=== PATIENT | female | born 1970 | race Caucasian/White ===

== ENCOUNTER 2018-06-01 09:24 | Emergency (ER) | payer OTHER ==
[~2018-06-01] VITALS: Ht 162.6 cm; Wt 66.7 kg
[2018-06-01] MEDS ORDERED: XARELTO10 MG PO (09:36)
[2018-06-01] MEDS ORDERED: LASIX20 MG PO (09:36)
[2018-06-01] MEDS ORDERED: INDERAL XL80 MG PO (09:36)
[2018-06-01] MEDS ORDERED: ZOFRAN4 MG SL (10:32)
[2018-06-01] MEDS ORDERED: ULTRAM50 MG PO (10:32)
--- NOTE | 2018-06-01 18:37 | EKG ---
[facility] [address] [facility] [place], [place] [address] Signed Normal sinus rhythm Nonspecific ST abnormality Abnormal ECG No previous ECGs available Confirmed by HAYDEE FERRARO MD ([id number]) on 06/01/2018 6:37:38 PM Electronically Signed By: HAYDEE FERRARO MD 06/01/18 1837 PATIENT NAME: MANOLO CALVILLO Electrocardiogram DATE OF : 74 PHYSICIAN: HAYDEE FERRARO MD REPORT #: [id number] REPORT IS CONFIDENTIAL AND NOT TO BE RELEASED WITHOUT AUTHORIZATION
== END 2018-06-01 12:10 | disposition home or self-care (01) ==
LOC: ED 09:24
DX: M79.18 Myalgia, other site (principal); Z79.899 Other long term (current) drug therapy; Z51.81 Encounter for therapeutic drug level monitoring
CPT/HCPCS: 71045; 80053; 81001; 84484; 84703; 85025; 85379; 85610; 93005; 93010; 96374; 99283-25; J2405

== ENCOUNTER 2018-08-18 15:34 | Emergency (ER) | payer OTHER ==
[~2018-08-18] VITALS: Ht 162.6 cm; Wt 66.7 kg
[~2018-08-18 15:34] MED LIST: INDERAL XL80 MG PO; LASIX20 MG PO; ULTRAM50 MG PO; XARELTO10 MG PO; ZOFRAN4 MG SL
--- OUTSIDE RECORDS SUMMARY | 2018-08-18 15:36 | XMS ---
PreManage Notification: MANOLO CALVILLO Security Learning Strategist Events No recent Security Events currently on file [facility] There are no care providers on record at this time. Yanira has no Care Guidelines for this patient. Jayden VISIT COUNT (12 MO.) 2 TATIANA Morillo TOTAL 2 NOTE: Visits indicate total known visits. ED/C VISIT TRACKING (12 MO.) 08/18/2018 15:34 TATIANA Mendez [place] TYPE: Emergency COMPLAINT: - STROKE SYMPTOMS 06/01/2018 09:25 TATIANA Mendez [place] TYPE: Emergency COMPLAINT: - JAW/NECK/L SHOULDER PAIN/NON INJURY DIAGNOSES: - Encounter for therapeutic drug level monitoring - Other computer terminal operator (current) drug therapy - Otalgia, left ear - MYALGIA, OTHER SITE INPATIENT VISIT TRACKING (12 MO.) No inpatient visits to display in this time frame [id number]
[2018-08-18] MEDS ORDERED: LOSARTAN POTASS25 MG PO (15:57)
[2018-08-18] MEDS ORDERED: OMEGA 3 500 SO1 EACH PO (15:58)
[2018-08-18] MEDS ORDERED: ASPIR-LOW81 MG PO (15:58)
[2018-08-18] MEDS ORDERED: NEXIUM40 MG PO (15:58)
[2018-08-18] MEDS ORDERED: ZYRTEC10 M3 PO (15:59)
[2018-08-19] MEDS ORDERED: REGLAN10 MG PO (14:29)
== END 2018-08-18 17:34 | disposition home or self-care (01) ==
LOC: ED 15:34
DX: R51 Headache (principal); R20.2 Paresthesia of skin; I10 Essential (primary) hypertension; Z79.899 Other long term (current) drug therapy; Z79.82 Long term (current) use of aspirin
CPT/HCPCS: 99283

== ENCOUNTER 2018-08-19 08:29 | Emergency (ER) | payer OTHER ==
[~2018-08-19] VITALS: Ht 162.6 cm; Wt 66.7 kg
[~2018-08-19 08:29] MED LIST changes: +ASPIR-LOW81 MG PO; +LOSARTAN POTASS25 MG PO; +NEXIUM40 MG PO; +OMEGA 3 500 SO1 EACH PO; +ZYRTEC10 M3 PO
--- OUTSIDE RECORDS SUMMARY | 2018-08-19 08:32 | XMS ---
PreManage Notification: MANOLO CALVILLO Security Chip Unloader Events No recent Security Events currently on file CRITERIA MET - PDM - [facility] - 2 Visits in 30 Days CARE PROVIDERS There are no care providers on record at this time. Yanira has no Care Guidelines for this patient. Jayden VISIT COUNT (12 MO[address] [facility] [place] H. TOTAL 3 NOTE: Visits indicate total known visits. ED/C VISIT TRACKING (12 MO.) 08/19/2018 08:30 [facility] [place] TYPE: Emergency COMPLAINT: - LEFT SIDED NUMBLESS/TINGLING 08/18/2018 15:34 TATIANA Mendez [place] TYPE: Emergency COMPLAINT: - STROKE SYMPTOMS 06/01/2018 09:25 TATIANA Mendez [place] TYPE: Emergency COMPLAINT: - JAW/NECK/L SHOULDER PAIN/NON INJURY DIAGNOSES: - Encounter for therapeutic drug level monitoring - Other correction (current) drug therapy - Otalgia, left ear - MYALGIA, OTHER SITE INPATIENT VISIT TRACKING (12 MO.) No inpatient visits to display in this time frame [id number]
[2018-08-19] MEDS ORDERED: REGLAN10 MG PO (14:29)
== END 2018-08-19 14:52 | disposition home or self-care (01) ==
LOC: ED 08:29
DX: G43.909 Migraine, unspecified, not intractable, without status migrainosus (principal); R20.2 Paresthesia of skin; I10 Essential (primary) hypertension; Z79.899 Other long term (current) drug therapy; Z79.82 Long term (current) use of aspirin
CPT/HCPCS: 70551; 80053; 85025; 96374; 96375; 99284-25; J1200; J1885; J2405; J2765

== ENCOUNTER 2018-08-21 10:50 | Emergency (ER) | payer OTHER ==
[~2018-08-21] VITALS: Ht 162.6 cm; Wt 66.7 kg
[~2018-08-21 10:50] MED LIST changes: +REGLAN10 MG PO
--- OUTSIDE RECORDS SUMMARY | 2018-08-21 10:54 | XMS ---
PreManage Notification: MANOLO CALVILLO Security Tile Applicator Events No recent Security Events currently on file CRITERIA MET - [facility] - Has Care Guidelines - PDMP - [facility] - 2 Visits in 30 Days CARE PROVIDERS Dayo Lizama [facility] 08/19/2018-Current PHONE: Unknown Yanira has no Care Guidelines for this patient. Care History Medical/Surgical 08/19/2018 [facility] - PATIENT HAS AN APT TO ESTABLISH CARE WITH DR LIZAMA ON 09/22/18. - Patient is currently established with [facility]. If patient is seen in the ED during business hours. Please contact CHWs at [facility]. - Care Recommendation: This patient has had 5 or more Emergency Department visits in the last 12 months.\T\nbsp; Patient requires education on the scope and purpose of the ED as an acute care provider not a Primary Care Provider and should not be utilized for chronic conditions.\T\nbsp; These are guidelines and the provider should exercise clinical judgment when providing care. E.D. VISIT COUNT (12 MO.) 4 TATIANA Morillo TOTAL 4 NOTE: Visits indicate total known visits. ED/UCC VISIT TRACKING (12 MO.) 08/21/2018 10:51 TATIANA Mendez [place] TYPE: Emergency COMPLAINT: - CHEST PAIN/BP PROBLEM 08/19/2018 08:30 T[facility]IANA Mendez [place] TYPE: Emergency COMPLAINT: - LEFT SIDED NUMBNESS/TINGLING 08/18/2018 15:34 TATIANA Mendez [place] TYPE: Emergency COMPLAINT: - STROKE SYMPTOMS DIAGNOSES: - Headache - Paresthesia of skin - Paresthesia of skin - Headache - remote computer terminal operator (current) use of aspirin - Essential (primary) hypertension - Other intermodal truck driver (current) drug therapy 06/01/2018 09:25 TATIANA Mendez [place] TYPE: Emergency COMPLAINT: - JAW/NECK/L SHOULDER PAIN/NON INJURY DIAGNOSES: - Encounter for therapeutic drug level monitoring - Other chcf (current) drug therapy - Otalgia, left ear - MYALGIA, OTHER SITE INPATIENT VISIT TRACKING (12 MO.) No inpatient visits to display in this time frame [email or web address]
[2018-08-21] MEDS ORDERED: INDERAL XL120 MG PO (11:06)
--- NOTE | 2018-08-21 15:53 | EKG ---
[facility] [address] [facility] [place] [address] Signed Normal sinus rhythm Normal ECG When compared with ECG of 01-JUN-2018 09:32, T wave inversion no longer evident in Anterior leads Confirmed by KAILA ARRIAZA MD ([id number]) on 08/21/2018 3:52:56 PM Electronically Signed By: KAILA ARRIAZA MD 08/21/18 1553 PATIENT NAME: MANOLO CALVILLO Electrocardiogram DATE OF : 74 PHYSICIAN: KALIA ARRIAZA MD REPORT #: [id number] REPORT IS CONFIDENTIAL AND NOT TO BE RELEASED WITHOUT AUTHORIZATION
== END 2018-08-21 14:00 | disposition home or self-care (01) ==
LOC: ED 10:50
DX: G43.809 Other migraine, not intractable, without status migrainosus (principal); I10 Essential (primary) hypertension; Z86.711 Personal history of pulmonary embolism; Z90.710 Acquired absence of both cervix and uterus; Z88.8 Allergy status to other drugs, medicaments and biological substances; Z79.899 Other long term (current) drug therapy; Z79.82 Long term (current) use of aspirin
CPT/HCPCS: 80053; 85025; 93005; 93010; 96361; 96374; 96375; 99283-25; J0780; J1100; J1885; J7030

== ENCOUNTER 2020-07-07 21:39 | Emergency (ER) | payer OTHER ==
[~2020-07-07] VITALS: Ht 162.6 cm; Wt 66.7 kg
[~2020-07-07 21:39] MED LIST changes: +INDERAL XL120 MG PO
--- NOTE | 2020-07-08 15:50 | EKG ---
[facility] [address] [facility] [place], [place] [address] Signed Normal sinus rhythm Normal ECG When compared with ECG of 21-AUG-2018 10:58, No significant change was found Confirmed by MERCEDES GALLARDO DO ([id number]) on 07/08/2020 3:50:36 PM Electronically Signed By: MERCEDES GALLARDO DO 07/08/20 1550 PATIENT NAME: MANOLO CALVILLO Electrocardiogram DATE OF : 74 PHYSICIAN: MERCEDES GALLARDO DO REPORT #: [id number] REPORT IS CONFIDENTIAL AND NOT TO BE RELEASED WITHOUT AUTHORIZATION
== END 2020-07-07 23:57 | disposition home or self-care (01) ==
LOC: ED 21:39
DX: J45.909 Unspecified asthma, uncomplicated (principal); Z20.822 Contact with and (suspected) exposure to COVID-19; I10 Essential (primary) hypertension; Z88.8 Allergy status to other drugs, medicaments and biological substances; Z79.899 Other long term (current) drug therapy; Z79.82 Long term (current) use of aspirin
CPT/HCPCS: 71045; 80053; 83880; 84484; 85025; 85379; 93005; 93010; 94640; 94644; 96374; 96375; 99285-25; C9803; J1170; J2405; J2930; U0003

== ENCOUNTER 2023-07-03 10:55 | Day surgery (SDC) | payer OTHER ==
[~2023-07-03] VITALS: Ht 162.6 cm; Wt 65.9 kg
[~2023-07-03 10:55] MED LIST changes: +CYCLOBENZAPRINE10 MG PO; +HYDROCHLOROTH12.5 MG PO; +IBLOOD GLUCOSE TEST STRIP 1 EA TEST VI PRN; +LACTATED RINGER'S 1,000 ML IV SCH; +LIDOCAINE HCL 1% 5 ML SDV INJ ONE; +LIPITOR20 MG PO; +MIDAZOLAM HCL 5 MG/5 ML VIAL IV PRN; +TOPROL XL25 MG PO; +XARELTO20 MG PO; +fentaNYL citrate 100 MCG/2 ML VIAL IV PRN
[2023-07-03 11:35] VITALS: BP 146/91
[2023-07-03] MEDS ORDERED: MIDAZOLAM HCL 5 MG/5 ML VIAL ONE (11:59)
[2023-07-03] MEDS ORDERED: fentaNYL citrate 100 MCG/2 ML VIAL ONE (12:00)
[2023-07-03] MEDS ORDERED: droPERidol 5 MG/2 ML VIAL IV PRN (13:15)
[2023-07-03 13:55] VITALS: BP 119/78
--- NOTE | 2023-07-03 14:04 | NUR ---
07/03/23 1404 [place] PT PRESENTS TO PACU, LEFT LATERAL POSITION. AWAKE BUT DROWSY, CONVERSING WITH STAFF AND ASKING QUESTIONS. REPORTS NAUSEA AT THIS TIME. DENIES PAIN, ABD ROUND AND FIRM. ENCOURAGED TO PASS GAS. LR INFUSING TO RFA IV. PT MAINTAINING O2 SATS ON ROOM AIR. ALL MONITORS IN PLACE. WILL ASK DR ORTEGA FOR NAUSEA MEDICATION. 1313- PT MEDICATED WITH INAPSINE PER ORDERS. DR ORTEGA AT BEDSIDE GIVING RESULTS TO PT. PT PASSING GAS AND HAS NO COMPLAINTS. ROLLED TO BACK AND SAT UP IN BED, TOLERATING WELL. 1318- PT REPORTS NAUSEA IMPROVED, ICE WATER PROVIDED. PT ANSWERING QUESTIONS APPROPRIATELY. NO SIGNS OF DISTRESS. 1325- PT UP TO SIDE OF BED TO GET DRESSED. TEXTED HER FOR A RIDE HOME. DENIES DIZZINESS AND NAUSEA. 1332- PT VERBALIZED UNDERSTANDING OF INSTRUCTIONS. SALINE LOCK REMOVED, TIP INTACT, DRESSING APPLIED. PT ALERT AND ORIENTED. NO SIGNS OF DISTRESS. PASSING GAS, NO NAUSEA. TRANSFERRED TO WHEEL CHAIR WITHOUT DIFFICULTY. PT TAKEN OUT TO FAMILY CAR.
--- NOTE | 2023-07-05 13:43 | OR ---
[facility] [address] [place], [place] [address] Signed DATE OF OPERATION: 07/03/2023 SURGEON: Theron Ortega MD PREOPERATIVE DIAGNOSES: Colon evaluation for diarrhea alternated with constipation. Known diverticulosis. Colonoscopy 2011. POSTOPERATIVE DIAGNOSIS: Holloway diverticulosis. No evidence of polyps or colitis. PROCEDURE: Total colonoscopy to cecum with biopsy of rectum. ANESTHESIA: Intravenous sedation; fentanyl 150 mcg and Versed 7 mg. INDICATION: This 52-year-old white woman is a patient of CANDELARIA Jensen. She has known diverticular disease having undergone colonoscopy in on 2011 at which time she was found to have "75 diverticula." She does have diarrhea alternating with constipation and no blood per rectum. She also complains of "spasm." She has no family history of colon cancer that she is aware of. 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 This included Lovenox subcutaneously administered in lieu of her usual anticoagulant Xarelto. Notably, she has underlying lupus anticoagulant disorder. She is admitted at this time to undergo colonoscopy on the basis of her symptoms as well as interval time since last colonoscopy more than 10 years ago. She understands the risk of bleeding, infection, and perforation and wishes to proceed. FINDINGS: The prep was quite excellent. Complete colonoscopy was undertaken of the cecum with full intubation of the cecum. Numerous diverticula were noted throughout the colon including the right side, transverse, left and sigmoid areas. There is no actual polyp or evidence of colitis. A biopsy was taken of the rectum to assess for occult colitis. DESCRIPTION OF PROCEDURE: The patient was brought to the endoscopy suite and placed in the lateral decubitus position, given intravenous sedation to the point of slurred speech and nystagmus. Full cardiopulmonary monitoring was undertaken. After satisfactory intravenous sedation, Electronically Signed By: THERON ORTEGA MD 07/05/23 1343 PATIENT NAME: MANOLO CALVILLO OPERATIVE REPORT DATE OF : 74 REPORT #: [id number] PHYSICIAN: THERON ORTEGA MD PCP: MOSES NASH PA-C REPORT IS CONFIDENTIAL AND NOT TO BE RELEASED WITHOUT AUTHORIZATION [facility] [address] [place], [place] [address] Signed digital rectal examination was performed showing no sign of anorectal abnormality. An Olympus video colonoscope was passed in the rectum and manipulated throughout the colon noting numerous diverticula throughout. Ultimately, the cecum was fully intubated. The ileocecal valve and appendiceal orifice were normal. The scope was withdrawn from that point and examination throughout showed only diverticulosis. No sign of polyps or colitis. Retroflexed view of the rectum was normal. Biopsies taken of the rectum to assess for occult colitis. The scope was removed. The patient was taken to the recovery room in good condition. CONCLUDING DIAGNOSIS: Holloway diverticulosis. PLAN: Recommend a high-fiber diet and a fiber supplement as tolerated (Metamucil or Citrucel.) I will follow up on her pathology report to assure there is no sign of occult colitis. Recommend repeat colonoscopy in 10 years, otherwise, sooner if symptoms should occur. She will return to the ongoing care of CANDELARIA Jensen. Theron Ortega MD JM/MODL /[id number] cc: CANDELARIA Jensen Copies: ~ Electronically Signed By: THERON ORTEGA MD 07/05/23 1343 PATIENT NAME: MANOLO CALVILLO [place] OPERATIVE REPORT DATE OF : 74 REPORT #: [id number] PHYSICIAN: THERON ORTEGA MD PCP: MOSES NASH PA-C REPORT IS CONFIDENTIAL AND NOT TO BE RELEASED WITHOUT AUTHORIZATION
--- NOTE | 2023-07-07 10:50 | PATH ---
[facility] [address] [facility] [place], [place] [address] Signed SPECIMEN(S): A RECTUM BIOPSY SPECIMEN SOURCE: A. RECTUM BIOPSY CLINICAL HISTORY: Pandiverticulosis, diverticulosis FINAL PATHOLOGIC DIAGNOSIS: Rectum, biopsy: - Colonic mucosa with no significant pathologic changes BRP MICROSCOPIC EXAMINATION: Histologic sections of all submitted blocks are examined by light microscopy. These findings, together with the gross examination, support the pathologic diagnosis. GROSS DESCRIPTION: The specimen, labeled and designated "Calvillo, rectum biopsy," is received in formalin and consists of two hung soft tissue fragments, ranging from 0.2-0.3 cm. Entirely submitted in (A1). VB (under the direct supervision of a pathologist) The Gross Description was prepared using a voice recognition system. The report was reviewed for accuracy; however, sound-alike word errors, addition and/or deletions may occur. If there is any question about this report, please contact Client Services. ADDITIONAL NOTES: Immunohistochemical and/or in situ hybridization studies if performed in this case included appropriate positive controls that reacted as expected. This test was developed and its performance characteristics determined by [facility]. It has not been cleared or approved by the U.S. Food and Drug Administration. The FDA has determined that such clearance or approval is not necessary. This test is used for clinical purposes. It should not be regarded as investigational or for research. [facility] is certified under the Clinical Laboratory Improvement Amendments of 1988 (CLIA) as qualified to perform high complexity clinical laboratory testing. PATIENT NAME: MANOLO CLAVILLO [facility] DATE OF : 74 REPORT #: [id number] PHYSICIAN: ANI POSADA PCP: MOSES NASH PA-C REPORT IS CONFIDENTIAL AND NOT TO BE RELEASED WITHOUT AUTHORIZATION [facility] [address] [place], [place] [address], [place] [address] Signed PERFORMING LABORATORY: Technical component was performed by [facility], [address] [place] [address] (CLIA# [id number]). Professional interpretation was performed by [facility] [address] [phone] [id number] Diagnostician: Nick Calderon MD Pathologist Electronically Signed 07/07/2023 Copies: ~ PATIENT NAME: MANOLO CALVILLO [facility] DATE OF : 74 REPORT #: [id number] PHYSICIAN: ANI POSADA PCP: MOSES NASH PA-C REPORT IS CONFIDENTIAL AND NOT TO BE RELEASED WITHOUT AUTHORIZATION
== END 2023-07-03 13:32 | disposition home or self-care (01) ==
LOC: OPS 10:55 → DS 10:56 → OPS 12:00 → DS 13:45 → OPS 13:45
PROVIDERS: ATTEND Surgery
PROC: 0DBP8ZX Excision of Rectum, Via Natural or Artificial Opening Endoscopic, Diagnostic (ICD-10-PCS; principal; 2023-07-03 12:00)
DX: K57.30 Diverticulosis of large intestine without perforation or abscess without bleeding (principal); K59.00 Constipation, unspecified; R19.7 Diarrhea, unspecified; K59.4 Anal spasm; D68.62 Lupus anticoagulant syndrome; I10 Essential (primary) hypertension; Z86.711 Personal history of pulmonary embolism; Z90.49 Acquired absence of other specified parts of digestive tract; Z90.711 Acquired absence of uterus with remaining cervical stump; Z88.8 Allergy status to other drugs, medicaments and biological substances; Z79.01 Long term (current) use of anticoagulants; Z79.899 Other long term (current) drug therapy
CPT/HCPCS: 99153; G0500; J1790; J2250; J3010; J7121